=== PATIENT | male | born 1980 | race Caucasian/White ===

== ENCOUNTER → 2018-06-18 | Outpatient (CLI) | payer BC | LOC: LABWHC1 16:21 | PROVIDERS: ATTEND Otolaryngology | DX: Z01.812 Encounter for preprocedural laboratory examination (principal) | CPT/HCPCS: 36415; 82565 ==

== ENCOUNTER → 2018-06-19 | Outpatient (CLI) | payer BC ==
--- NOTE | 2018-06-20 18:00 | MR ---
EXAMINATION TYPE: MR iac wo/w con DATE OF EXAM: 06/19/2018 COMPARISON: None HISTORY: Hearing loss TECHNIQUE: Multiplanar, multisequence images of the brain and brainstem is performed without and with IV contras t, utilizing 10 mL intravenous Gadavist . Small [id number] images obtained through the internal au ditory canals. FINDINGS: Diffusion weighted images demonstrate no evidence of a recent infarct or other diffusion ab normality. There is no extra-axial fluid collection. Scattered hyperintensities on inversion recove ry T2-weighted sequences are present in the deep white matter, there are approximately 3-5 lesions pr esent, largest in the right frontal lobe measures 4 to 5 mm on axial image 16 The ventricular system and cisternal spaces are normal in size and appearance. The brain volume is age appropriate. Midline structures demonstrate normal morphology. The craniocervical junction appears within normal limits. Post contrast images demonstrate no abnormal enhancement. The dural venous sinuses appear pa tent. The visualized sinuses are remarkable for bilateral inflammatory changes in the maxillary sinus es, there may be mucus retention cysts or polyps in the antra, mild inflammatory change in the ethmoi d air cells and frontal sinus, bilateral mastoid air cells show inflammatory change, and the globes a re intact. IMPRESSION: Sinus disease as described, correlate for mastoiditis. Nonspecific white matter demyelina tion could be related to migraine headaches, hypertension, multiple sclerosis, Lyme disease or vascul itis in the appropriate clinical setting. No evident cerebellopontine angle mass. Temporal bone CT ma y be of benefit.
== END ==
LOC: RADMRIMAIN 10:15
PROVIDERS: ATTEND Otolaryngology
DX: H93.19 Tinnitus, unspecified ear (principal); H91.90 Unspecified hearing loss, unspecified ear
CPT/HCPCS: 70553; A9585

== ENCOUNTER → 2019-01-21 | Outpatient (CLI) | payer BC ==
[2019-01-21 13:40] LABS: Basophils # (A) 0.1 k/uL (0-0.2); Basophils % (A) 1 %; Eosinophils # (A) 0.3 k/uL (0-0.7); Eosinophils % (A) 4 %; HCT 44.6 % (39.0-53.0); HGB 14.6 gm/dL (13.0-17.5); Lymphocytes # (A) 2.5 k/uL (1.0-4.8); Lymphocytes % (A) 31 %; MCH 28.4 pg (25.0-35.0); MCHC 32.8 g/dL (31.0-37.0); MCV 86.6 fL (80.0-100.0); Mean Platelet Volume 6.5; Monocytes # (A) 0.4 k/uL (0-1.0); Monocytes % (A) 4 %; Neutrophils # (A) 4.6 k/uL (1.3-7.7); Neutrophils % (A) 58 %; Platelet Count 324 k/uL (150-450); RBC 5.14 m/uL (4.30-5.90); RDW 13.4 % (11.5-15.5)
[2019-01-21 16:20] LABS: Erythrocyte Sedimentation Rate 9 mm/hr (0-15)
[2019-01-21 19:02] LABS: Vitamin D 25 Hydroxy 24.6 ng/mL (30.0-100.0)
[2019-01-21 19:03] LABS: Thyroid Peroxidase Antibodies 35.7 U/mL (0.0-60.0)
[2019-01-21 19:32] LABS: Rheumatoid Factor 4 IU/mL (0-15)
[2019-01-22 12:34] LABS: HLA B27 NEGATIVE
[2019-01-24 15:31] LABS: ANA Pattern See Footnote
[2019-01-25 12:08] LABS: Lyme IgG/IgM 0.19 Index
== END | disposition home or self-care (01) ==
LOC: LABWHC1 12:49
PROVIDERS: ATTEND Nurse Practitioner Family
DX: M25.50 Pain in unspecified joint (principal); R53.83 Other fatigue; H90.3 Sensorineural hearing loss, bilateral
CPT/HCPCS: 36415; 82306; 83516; 84443; 85025; 85652; 86038; 86039; 86376; 86431; 86618; 86812

== ENCOUNTER 2019-05-23 15:37 | Emergency (ER) | payer BC, OTHER ==
[2019-05-23 15:46] VITALS: BP 153/98; PULSE 85; RESP 20; TEMP 98.2
[2019-05-23] MEDS ORDERED: DIPH,PERTUS(ACELL)TETVAC-LF 0.5 ML VIAL IM ONE (15:53)
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
== END 2019-05-23 16:53 | disposition home or self-care (01) ==
LOC: EC 15:37
DX: S10.91XA Abrasion of unspecified part of neck, initial encounter (principal); S09.93XA Unspecified injury of face, initial encounter; Z23 Encounter for immunization; Z87.891 Personal history of nicotine dependence; V48.5XXA Car driver injured in noncollision transport accident in traffic accident, initial encounter; Y92.410 Unspecified street and highway as the place of occurrence of the external cause; Y93.89 Activity, other specified; Y99.0 Civilian activity done for income or pay
CPT/HCPCS: 70450; 70486; 72125; 90471; 90715; 99284

== ENCOUNTER → 2020-04-30 | Outpatient (CLI) | payer BC ==
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
== END | disposition home or self-care (01) ==
LOC: RAD 17:03
PROVIDERS: ATTEND Family Medicine
DX: S89.91XA Unspecified injury of right lower leg, initial encounter (principal)

== ENCOUNTER 2025-01-25 14:25 | Emergency (ER) | payer BC, OTHER ==
[2025-01-25 14:37] VITALS: RESP 16; TEMP 97.9
--- NOTE | 2025-01-25 15:31 | ED ---
Lower Extremity Injury HPI - General Chief Complaint: Extremity Injury, Lower Stated Complaint: [facility]-R knee pain Time Seen by Provider: 01/25/25 15:29 Source: patient, RN notes reviewed Mode of arrival: ambulatory Limitations: no limitations - History of Present Illness Initial Comments: 44-year-old male presenting for right knee injury yesterday. States he was working out and doing sprints when he felt immediate pain in the right knee. Denies traumatic injury. States he is experiencing pain with weightbearing in the anterior and posterior knee that radiates proximally up the leg. - Related Data Home Medications Medication Instructions Recorded Confirmed Antiarthritic Combination No.2 900 mg PO DAILY 06/27/14 06/28/14 [Glucosamine-Chondroitin] Mesalamine [Canasa] 1 tab PO DIRECTED PRN 06/27/14 06/28/14 [place]-3 Fatty Acids/Fish Oil [Fish 1 tab PO DAILY 06/27/14 06/28/14 Oil 1,000 mg Softgel] Previous Rx's Medication Instructions Recorded HYDROcodone/APAP 7.5-325MG [[place] 1 - 2 each PO Q6HR PRN #60 tab 06/28/14 7.5] Allergies Allergy/AdvReac Type Severity Reaction Status Date / Time No Known Allergies Allergy Verified 01/25/25 14:37 Review of Systems ROS Statement: Those systems with pertinent positive or pertinent negative responses have been documented in the HPI. ROS Other: All systems not noted in ROS Statement are negative. Past Medical History Past Medical History: Asthma Additional Past Medical History / Comment(s): HX OF COLITIS, ASTHMA CHILD History of Any Multi-Drug Resistant Organisms: None Reported Past Surgical History: Adenoidectomy, Orthopedic Surgery, Tonsillectomy Additional Past Surgical History / Comment(s): LASIX SX, RT KNEE ARTHROSCOPY, LYMPH NODE REMOVED LEFT SHOULDER Past Anesthesia/Blood Transfusion Reactions: No Reported Reaction Past Psychological History: No Psychological Hx Reported Past Alcohol Use History: None Reported Past Drug Use History: None Reported General Exam Limitations: no limitations General appearance: alert, in no apparent distress Head exam: Present: atraumatic, normocephalic, normal inspection Right Upper Leg exam: Present: normal inspection, full ROM. Absent: tenderness, swelling Knee exam: Present: normal inspection, full ROM. Absent: tenderness, swelling, deformity, pain w/ pronation/supination, posterior draw sign, pain/laxity with valgus, pain/laxity with varus Lower Leg exam: Present: normal inspection, full ROM. Absent: tenderness, swelling Ankle exam: Present: normal inspection, full ROM. Absent: tenderness, swelling Neurovascular tendon exam: Present: no vascular compromise. Absent: pulse deficit, abnormal cap refill, motor deficit Neurological exam: Present: alert, oriented X3 Psychiatric exam: Present: normal affect, normal mood Skin exam: Present: warm, dry, intact, normal color. Absent: rash Course Vital Signs 01/25/25 14:35 Temperature 97.9 F Pulse Rate 81 Respiratory 16 Rate Blood Pressure 160/90 O2 Sat by Pulse 98 Oximetry Medical Decision Making - Medical Decision Making Was pt. sent in by a medical professional or institution ([facility] Santiago, OIL REFINER, urgent care, hospital, or [facility]...) When possible be specific @ -No Did you speak to anyone other than the patient for history (EMS, parent, family, police, friend...)? What history was obtained from this source @ -No Did you review nursing and triage notes (agree or disagree)? Why? @ -I reviewed and agree with nursing and triage notes Were old charts reviewed (outside hosp., previous admission, EMS record, old EKG, old radiological studies, urgent care reports/EKG's, [facility] records)? Report findings @ -No old charts were reviewed Differential Diagnosis (chest pain, altered mental status, abdominal pain women, abdominal pain men, vaginal bleeding, weakness, fever, dyspnea, syncope, headache, dizziness, GI bleed, back pain, seizure, CVA, palpatations, mental health, musculoskeletal)? @ -Differential Musculoskeletal Muscular strain, contusion, ligament sprain, fracture, arthritis, septic arthritis, bursitis, cellulitis, muscle spasm, nerve compression, DVT, arterial occlusion, herpes zoster, electrolyte abnormality, tumor.... This is not meant to be in all inclusive list EKG interpreted by me (3pts min.). @ -None X-rays interpreted by me (1pt min.). @ -X-ray right knee reveals no acute process CT interpreted by me (1pt min.). @ -None done U/S interpreted by me (1pt. min.). @ -None done What testing was considered but not performed or refused? (CT, X-rays, U/S, labs)? Why? @ -None What meds were considered but not given or refused? Why? @ -None Did you discuss the management of the patient with other professionals (professionals i.e. , PA, OIL REFINER, lab, RT, psych nurse, social media marketing analyst, associate pastor, teacher, contracts officer, case checker)? Give summary @ -No Was smoking cessation discussed for >3mins.? @ -No Was critical care preformed (if so, how long)? @ -No Were there social determinants of health that impacted care today? How? (Homelessness, low income, unemployed, alcoholism, drug addiction, transportation, low edu. Level, literacy, decrease access to med. care, custodial, rehab)? @ -No Was there de-escalation of care discussed even if they declined (Discuss DNR or withdrawal of care, Hospice)? DNR status @ -No What co-morbidities impacted this encounter? (DM, HTN, Smoking, COPD, CAD, Cancer, CVA, ARF, Chemo, Hep., AIDS, mental health diagnosis, sleep apnea, morbid obesity)? @ -None Was patient admitted / discharged? Hospital course, mention meds given and route, prescriptions, significant lab abnormalities, going to OR and other pertinent info. @ -Discharge. 44-year-old male presenting for right knee injury yesterday. Neurovascularly intact. Able to bear minimal amount of weight. X-ray right knee reveals no acute process. Patient was provided with a knee immobilizer and crutches and advised to follow-up with orthopedics. Appropriate return precautions and supportive care discussed. Case was discussed with my ED attending Dr. Jaramillo Undiagnosed new problem with uncertain prognosis? @ -No Drug Therapy requiring intensive monitoring for toxicity (Heparin, Nitro, Insulin, Cardizem)? @ -No Were any procedures done? @ -No Diagnosis/symptom? @ -Right knee sprain Acute, or Chronic, or Acute on Chronic? @ -Acute Uncomplicated (without systemic symptoms) or Complicated (systemic symptoms)? @ -Uncomplicated Side effects of treatment? @ -No Exacerbation, Progression, or Severe Exacerbation? @ -No Poses a threat to life or bodily function? How? (Chest pain, [place], [place], pneumonia, PE, COPD, DKA, ARF, appy, cholecystitis, CVA, Diverticulitis, Homicidal, Suicidal, threat to staff... and all critical care pts) @ -No Disposition Clinical Impression: Right knee sprain Disposition: HOME SELF-CARE Condition: Stable Instructions (If sedation given, give patient instructions): Knee Sprain (ED) Additional Instructions: Wear knee immobilizer and crutches until orthopedic follow-up. Rest, ice, and elevate the right knee. Please return to the Emergency Department if symptoms worsen or any other concerns. Is patient prescribed a controlled substance at d/c from ED?: No Referrals: Sam Vásquez DO [Primary Care Provider] - 1-2 days Munir Palacio MD [STAFF PHYSICIAN] - 1-2 days Time of Disposition: 16:57
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
[2025-01-25 17:26] VITALS: BP 128/82; PULSE 70
== END 2025-01-25 17:27 | disposition home or self-care (01) ==
LOC: EC 14:25
DX: S83.91XA Sprain of unspecified site of right knee, initial encounter (principal); X50.9XXA Other and unspecified overexertion or strenuous movements or postures, initial encounter
CPT/HCPCS: 29505; 99283